=== PATIENT | female | born 1950 | race Caucasian/White ===

== ENCOUNTER → 2019-06-14 | Outpatient (CLI) | payer MEDICARE ==
[~2019-06-14] MED LIST: ALBUIS INH; BUDE6HFA INH; MUPI1NAS; PENVK500 PO; STIOLTO RESPIMAT4 GM
== END | disposition home or self-care (01) ==
LOC: LAB EV 14:02 → LAB SHORT 14:02
DX: N39.0 Urinary tract infection, site not specified (principal)
CPT/HCPCS: 87077; 87086; 87186

== ENCOUNTER 2019-09-24 11:53 | Inpatient (IN) | payer MEDICARE ==
[~2019-09-24] VITALS: Ht 160 cm; Wt 65.7 kg
[~2019-09-24 11:53] MED LIST changes: -ALBUIS INH; +PROAIR DIGIHAL90 MCG INH
[2019-09-24] MEDS ORDERED: BREO ELLIPTA 21 EACH INH (13:06)
[2019-09-24] MEDS ORDERED: TIOT18 INH (13:07)
[2019-09-24 13:33] LABS: BASOPHILS ABSOLUTE AUTO 0.04 K/mm3 (0.00-0.23); BASOPHILS PERCENT AUTO 0 % (0-2); EOSINOPHILS ABSOLUTE AUTO 0.03 K/mm3 (0.00-0.68); EOSINOPHILS PERCENT AUTO 0 % (0-6); Hematocrit 42.5 % (33.0-51.0); Hemoglobin 13.4 g/dL (11.5-16.0); IMMATURE GRAN ABSOLUTE AUTO 0.11 K/mm3 (0.00-0.10); IMMATURE GRAN PERCENT AUTO 1 % (0-1); LYMPHOCYTES ABSOLUTE AUTO 1.03 K/mm3 (0.84-5.20); LYMPHOCYTES PERCENT AUTO 6 % (21-46); MONOCYTES ABSOLUTE AUTO 1.48 K/mm3 (0.16-1.47); MONOCYTES PERCENT AUTO 9 % (4-13); Mean Corpuscular HGB 27.6 pg (26.0-34.0); Mean Corpuscular HGB Conc 31.5 g/dL (31.5-36.5); Mean Corpuscular Volume 88 fL (80-100); Mean Platelet Volume 9.1 fL (9.1-12.4); NEUTROPHILS ABSOLUTE AUTO 14.76 K/mm3 (1.96-9.15); NEUTROPHILS PERCENT AUTO 85 % (41-73); Platelet Count 234 K/mm3 (150-400); RDW Coefficient Variation 12.7 % (11.7-14.2); Red Blood Cell Count 4.85 M/mm3 (3.80-5.20); White Blood Cell Count 17.45 K/mm3 (4.00-11.30)
[2019-09-24 13:53] LABS: Alanine Aminotransfer (ALT/SGP 20 U/L (12-78); Albumin, Blood 3.3 g/dL (3.4-5.0); Albumin/Globulin Ratio 0.8 (0.8-1.8); Alk Phos 95 U/L (50-136); Anion Gap 6 mmol/L (6-16); Aspartate Aminotrans (AST/SGOT 11 U/L (12-37); Bilirubin, Total 0.6 mg/dL (0.1-1.0); Blood Urea Nitrogen 14 mg/dL (8-24); Bun/Creatinine Ratio 16.8 (12.0-20.0); CO2, Blood 26 mmol/L (21-32); Calcium, Blood 8.6 mg/dL (8.5-10.1); Chloride, Blood 101 mmol/L (98-108); Creatinine, Blood 0.83 mg/dL (0.40-1.00); Globulin, Blood 3.9 g/dL (2.2-4.0); Glomerular Filtration Rate >60 (60-); Glucose, Blood 116 mg/dL (70-99); Potassium, Blood 4.4 mmol/L (3.5-5.5); Sodium, Blood 133 mmol/L (136-145); Total Protein, Blood 7.2 g/dL (6.4-8.2)
--- NOTE | 2019-09-24 17:20 | NUR ---
PT AARIVED TO THE MEDICAL FLOOR FROM THE ER A/OX3, PLEASANT AND COOPERATIVE, VIA STRETCHER, ACCOMPANIED BY FAMILY, THE PT WAS ABLE TO STAND AND AMBULATE TO THE BED, THE PT IS ON O2 @ 2L/MIN, PT REPORTS BREATHING EASIER SINCE ADMISSION, PT ORIENTED TO THE ROOM LAYOUT AND CALL SYSTEM, CALL LIGHT IN REACH, WILL CONTINUE TO MONITOR AND ASSESS FOR CHANGES
[2019-09-25 03:49] LABS: Adenovirus Not Detected (NOT DETECT); Bordetella pertussis Not Detected (NOT DETECT); Chlamydophila pneumoniae Not Detected (NOT DETECT); Coronavirus 229E Not Detected (NOT DETECT); Coronavirus HKU1 Not Detected (NOT DETECT); Coronavirus NL63 Not Detected (NOT DETECT); Coronavirus OC43 Not Detected (NOT DETECT); Human Metapneumovirus Not Detected (NOT DETECT); Human Rhinovirus/Enterovirus Not Detected (NOT DETECT); Influenza A Not Detected (NOT DETECT); Influenza A/2009-H1 Not Detected (NOT DETECT); Influenza A/H1 Not Detected (NOT DETECT); Influenza A/H3 Not Detected (NOT DETECT); Influenza B Not Detected (NOT DETECT); Mycoplasma pneumoniae Not Detected (NOT DETECT); Parainfluenza Virus 1 Not Detected (NOT DETECT); Parainfluenza Virus 2 Not Detected (NOT DETECT); Parainfluenza Virus 3 Not Detected (NOT DETECT); Parainfluenza Virus 4 Not Detected (NOT DETECT); Respiratory Syncytial Virus Detected (NOT DETECT)
--- NOTE | 2019-09-25 05:13 | NUR ---
PLATE SHOP HELPER SUMMARY PT AAOX4 AND PLEASANT. ON 2L O2 VIA NC, RA AT BASELINE. LUNGS COARSE AND PT HAS DRY COUGH. RESPIRATORY PANEL SENT OFF AND CAME BACK POSITIVE FOR RSV, PT PLACED IN DROPLET ISOLATION. PT AFEBRILE THROUGH THE NIGHT. STANDBY ASSIST TO BATHROOM. VSS, WILL CONTINUE TO MONITOR.
[2019-09-25 11:04] LABS: BASOPHILS ABSOLUTE AUTO 0.03 K/mm3 (0.00-0.23); BASOPHILS PERCENT AUTO 0 % (0-2); EOSINOPHILS ABSOLUTE AUTO 0.08 K/mm3 (0.00-0.68); EOSINOPHILS PERCENT AUTO 1 % (0-6); Hematocrit 40.2 % (33.0-51.0); Hemoglobin 12.9 g/dL (11.5-16.0); IMMATURE GRAN ABSOLUTE AUTO 0.08 K/mm3 (0.00-0.10); IMMATURE GRAN PERCENT AUTO 1 % (0-1); LYMPHOCYTES ABSOLUTE AUTO 0.93 K/mm3 (0.84-5.20); LYMPHOCYTES PERCENT AUTO 8 % (21-46); MONOCYTES ABSOLUTE AUTO 0.93 K/mm3 (0.16-1.47); MONOCYTES PERCENT AUTO 8 % (4-13); Mean Corpuscular HGB 27.9 pg (26.0-34.0); Mean Corpuscular HGB Conc 32.1 g/dL (31.5-36.5); Mean Corpuscular Volume 87 fL (80-100); Mean Platelet Volume 10.3 fL (9.1-12.4); NEUTROPHILS PERCENT AUTO 83 % (41-73); Platelet Count 144 K/mm3 (150-400); RDW Coefficient Variation 12.9 % (11.7-14.2); Red Blood Cell Count 4.62 M/mm3 (3.80-5.20); White Blood Cell Count 11.85 K/mm3 (4.00-11.30)
[2019-09-25 11:23] LABS: Anion Gap 8 mmol/L (6-16); Blood Urea Nitrogen 10 mg/dL (8-24); Bun/Creatinine Ratio 15.4 (12.0-20.0); CO2, Blood 23 mmol/L (21-32); Calcium, Blood 8.3 mg/dL (8.5-10.1); Chloride, Blood 106 mmol/L (98-108); Creatinine, Blood 0.65 mg/dL (0.40-1.00); Glomerular Filtration Rate >60 (60-); Glucose, Blood 114 mg/dL (70-99); Potassium, Blood 4.3 mmol/L (3.5-5.5); Sodium, Blood 137 mmol/L (136-145)
--- NOTE | 2019-09-25 16:34 | NUR ---
PT IS A/OX3, PLEASANT AND COPERATIVE, THE PT IS UP WITH MINIMAL ASSIST TO THE BATHROOM, THE PT WAS UP INTO THE SHOWER TODAY, PTS O2 TITRATED OFF, THE PT APPEAR TO BE BREATHING EASILY ON RA AT REST, PT DENIED ANY PAIN, PT HAS A LOOSE PRODUCTIVE COUGH, FAMILY WAS IN TO SEE THE PT THIS AM, PT SLEPT FOR MOST OF THE DAY, CALL LIGHT IN REACH, WILL CONTINUE TO MONITOR AND ASSESS FOR CHANGES
--- NOTE | 2019-09-26 04:23 | NUR ---
SHIFT SUMMARY A/O, ABLE TO MAKE NEEDS KNOWN. COOPERATIVE WITH CARE. CALLS AND ANSWERS QUESTIONS APPROPRIATELY. NO C/O PAIN/DISCOMFORT. FEBRILE THIS AM; MEDICATED PER EMAR. UP WITH 1P ASSIST TO BATHROOM R/T IV POLE/TUBING. APPEARED TO REST MUCH OF SHIFT. BED REMAINS IN LOWEST POSITION. CALL LIGHT AND BELONGINGS WITHIN REACH. WCTM. REPORT TO ONCOMING RN.
[2019-09-26 05:49] LABS: BASOPHILS ABSOLUTE AUTO 0.02 K/mm3 (0.00-0.23); BASOPHILS PERCENT AUTO 0 % (0-2); EOSINOPHILS ABSOLUTE AUTO 0.15 K/mm3 (0.00-0.68); EOSINOPHILS PERCENT AUTO 2 % (0-6); Hematocrit 36.9 % (33.0-51.0); Hemoglobin 11.8 g/dL (11.5-16.0); IMMATURE GRAN ABSOLUTE AUTO 0.03 K/mm3 (0.00-0.10); IMMATURE GRAN PERCENT AUTO 0 % (0-1); LYMPHOCYTES ABSOLUTE AUTO 0.88 K/mm3 (0.84-5.20); LYMPHOCYTES PERCENT AUTO 9 % (21-46); MONOCYTES ABSOLUTE AUTO 0.65 K/mm3 (0.16-1.47); MONOCYTES PERCENT AUTO 7 % (4-13); Mean Corpuscular HGB 27.8 pg (26.0-34.0); Mean Corpuscular Volume 87 fL (80-100); Mean Platelet Volume 9.9 fL (9.1-12.4); NEUTROPHILS ABSOLUTE AUTO 8.21 K/mm3 (1.96-9.15); NEUTROPHILS PERCENT AUTO 83 % (41-73); Platelet Count 215 K/mm3 (150-400); RDW Coefficient Variation 12.8 % (11.7-14.2); RDW Standard Deviation 40.9 fL (35.1-46.3); Red Blood Cell Count 4.24 M/mm3 (3.80-5.20); White Blood Cell Count 9.94 K/mm3 (4.00-11.30)
[2019-09-26 06:06] LABS: Anion Gap 8 mmol/L (6-16); Blood Urea Nitrogen 10 mg/dL (8-24); Bun/Creatinine Ratio 13.4 (12.0-20.0); CO2, Blood 24 mmol/L (21-32); Calcium, Blood 8.2 mg/dL (8.5-10.1); Chloride, Blood 104 mmol/L (98-108); Creatinine, Blood 0.75 mg/dL (0.40-1.00); Glomerular Filtration Rate >60 (60-); Glucose, Blood 164 mg/dL (70-99); Potassium, Blood 3.6 mmol/L (3.5-5.5); Sodium, Blood 136 mmol/L (136-145)
--- NOTE | 2019-09-26 13:15 | NUR ---
SHIFT SUMMARY PT IS A/ OX 4 WITH NO C/O PAIN. PT HAS HAD A LOW GRADE TEMP AND HAS BEEN IN THE HIGH 90'S ON 2 LPM VIA N.C. SHE HAS CRACKLES IN HER BASES BUT DENIES ANY SOB AND HAS NO S/S OF RESP DISTRESS. WATER TAXI CAPTAIN REPORTS SINUS AT 92. IV FLUIDS AND ABO HAVE INFUSED WITH NO ISSUES OBSERVED. FAMILY VISITED PT AT BEDSIDE THIS MORNING. ORDERED A HOME O2 EVAL. PLAN IS FOR POSSIBLE DC THIS AMAIRANI IF PT CONTINUES TO IMPROVE PER . PT IS ABLE TO MAKE HER NEEDS KNOWN. SHE CALLS FOR HELP WHEN NEEDED. CALL LIGHT IS IN REACH.
[2019-09-26] MEDS ORDERED: ACET325 PO (15:25)
[2019-09-26] MEDS ORDERED: LEVO750 PO (15:26)
[2019-09-26] MEDS ORDERED: GUAI600T33 PO (15:26)
--- NOTE | 2019-09-26 16:46 | NUR ---
DISCHARGE DISCHARGE INSTRUCTIONS, FOLLOW UP APPOINTMENT AND MEDICATION LIST REVIEWED WITH PT. QUESTIONS/CONCERNS ANSWERED. PT VERBALLY INDICATED UNDERSTANDING OF ALL INSTRUCTIONS RECEIVED. ESCORTED OUT VIA W/C BY LESLY
== END 2019-09-26 16:41 | disposition home or self-care (01) | DRG 871 ==
LOC: ER 11:53 → MEDS 16:04
PROVIDERS: Family Medicine; Hospitalist; Physician Assistant; ADMIT Internal Medicine Endocrinology, Diabetes & Metabolism
DX: A41.9 Sepsis, unspecified organism (principal); J12.1 Respiratory syncytial virus pneumonia; J96.01 Acute respiratory failure with hypoxia; J44.0 Chronic obstructive pulmonary disease with (acute) lower respiratory infection; Z87.891 Personal history of nicotine dependence; Z88.1 Allergy status to other antibiotic agents
CPT/HCPCS: 0099U; 36415; 71046; 80048; 80053; 83605; 84145; 85025; 87040; 87070; 87077; 87081; 87147; 87186; 87205; 87430; 93005; 93010; 94640; 94760; 94761; 96361; 96365; 99285-25; A9270; J0696; J1650; J1956; J7030; J7120

== ENCOUNTER → 2022-03-27 | Outpatient (CLI) | payer MEDICARE ==
[~2022-03-27] MED LIST changes: +ACET325 PO; +BREO ELLIPTA 21 EACH INH; +GUAI600T33 PO; +LEVO750 PO; +TIOT18 INH
[2022-03-27 11:10] LABS: BASOPHILS ABSOLUTE AUTO 0.04 K/mm3 (0.00-0.23); BASOPHILS PERCENT AUTO 1 % (0-2); EOSINOPHILS ABSOLUTE AUTO 0.27 K/mm3 (0.00-0.68); EOSINOPHILS PERCENT AUTO 5 % (0-6); Hematocrit 40.9 % (33.0-51.0); Hemoglobin 13.7 g/dL (11.5-16.0); IMMATURE GRAN ABSOLUTE AUTO 0.02 K/mm3 (0.00-0.10); IMMATURE GRAN PERCENT AUTO 0 % (0-1); LYMPHOCYTES ABSOLUTE AUTO 1.16 K/mm3 (0.84-5.20); LYMPHOCYTES PERCENT AUTO 20 % (21-46); MONOCYTES ABSOLUTE AUTO 0.54 K/mm3 (0.16-1.47); MONOCYTES PERCENT AUTO 9 % (4-13); Mean Corpuscular HGB 28.7 pg (26.0-34.0); Mean Corpuscular HGB Conc 33.5 g/dL (31.5-36.5); Mean Corpuscular Volume 86 fL (80-100); Mean Platelet Volume 8.9 fL (9.1-12.4); NEUTROPHILS ABSOLUTE AUTO 3.72 K/mm3 (1.96-9.15); NEUTROPHILS PERCENT AUTO 65 % (41-73); Platelet Count 281 K/mm3 (150-400); RDW Coefficient Variation 12.8 % (11.7-14.2); RDW Standard Deviation 39.8 fL (35.1-46.3); Red Blood Cell Count 4.77 M/mm3 (3.80-5.20); White Blood Cell Count 5.75 K/mm3 (4.00-11.30)
[2022-03-27 11:20] LABS: Albumin, Blood 3.5 g/dL (3.4-5.0); Bilirubin, Total 0.4 mg/dL (0.1-1.0); Bun/Creatinine Ratio 27.3 (12.0-20.0); Calcium, Blood 9.1 mg/dL (8.5-10.1); Creatinine, Blood 1.39 mg/dL (0.40-1.00); Globulin, Blood 3.6 g/dL (2.2-4.0); Potassium, Blood 4.1 mmol/L (3.5-5.5); Total Protein, Blood 7.1 g/dL (6.4-8.2)
== END | disposition home or self-care (01) ==
LOC: LAB SHORT 11:04 → LAB 11:04
PROVIDERS: Family Medicine
DX: J96.01 Acute respiratory failure with hypoxia (principal)
CPT/HCPCS: 80053; 83880; 85025; 85379

== ENCOUNTER 2022-06-28 22:43 | Emergency (ER) | payer MEDICARE ==
[~2022-06-28] VITALS: Ht 160 cm; Wt 61.2 kg
[2022-06-28 23:30] LABS: BASOPHILS ABSOLUTE AUTO 0.03 K/mm3 (0.00-0.23); BASOPHILS PERCENT AUTO 1 % (0-2); EOSINOPHILS ABSOLUTE AUTO 0.24 K/mm3 (0.00-0.68); EOSINOPHILS PERCENT AUTO 4 % (0-6); Hematocrit 39.8 % (33.0-51.0); IMMATURE GRAN ABSOLUTE AUTO 0.02 K/mm3 (0.00-0.10); IMMATURE GRAN PERCENT AUTO 0 % (0-1); LYMPHOCYTES ABSOLUTE AUTO 0.86 K/mm3 (0.84-5.20); LYMPHOCYTES PERCENT AUTO 16 % (21-46); MONOCYTES ABSOLUTE AUTO 0.77 K/mm3 (0.16-1.47); MONOCYTES PERCENT AUTO 14 % (4-13); Mean Corpuscular HGB 28.8 pg (26.0-34.0); Mean Corpuscular HGB Conc 32.7 g/dL (31.5-36.5); Mean Corpuscular Volume 88 fL (80-100); Mean Platelet Volume 9.1 fL (9.1-12.4); NEUTROPHILS ABSOLUTE AUTO 3.55 K/mm3 (1.96-9.15); NEUTROPHILS PERCENT AUTO 65 % (41-73); Platelet Count 223 K/mm3 (150-400); RDW Coefficient Variation 13.1 % (11.7-14.2); RDW Standard Deviation 42.6 fL (35.1-46.3); Red Blood Cell Count 4.51 M/mm3 (3.80-5.20); White Blood Cell Count 5.47 K/mm3 (4.00-11.30)
[2022-06-28 23:45] LABS: Albumin, Blood 3.3 g/dL (3.4-5.0); Albumin/Globulin Ratio 0.9 (0.8-1.8); Bilirubin, Total 0.4 mg/dL (0.1-1.0); Bun/Creatinine Ratio 26.4 (12.0-20.0); Calcium, Blood 8.9 mg/dL (8.5-10.1); Creatinine, Blood 1.1 mg/dL (0.40-1.00); Globulin, Blood 3.8 g/dL (2.2-4.0); Potassium, Blood 3.8 mmol/L (3.5-5.5); Total Protein, Blood 7.1 g/dL (6.4-8.2)
[2022-06-29 04:11] LABS: Influenza B, PCR NEGATIVE (NEGATIVE); Resp Syncytial Virus, PCR NEGATIVE (NEGATIVE); SARS-Cov-2 (COVID-19) PCR, MMC NEGATIVE (NEGATIVE)
[2022-06-29 04:22] LABS: Influenza A, PCR POSITIVE (NEGATIVE)
[2022-06-29] MEDS ORDERED: PRED20 PO (04:51)
[2022-06-29] MEDS ORDERED: OSEL75CA PO (04:51)
== END 2022-06-29 05:24 | disposition home or self-care (01) ==
LOC: ER 22:43
PROVIDERS: Student in an Organized Health Care Education/Training Program
DX: J10.1 Influenza due to other identified influenza virus with other respiratory manifestations (principal); J44.1 Chronic obstructive pulmonary disease with (acute) exacerbation; Z20.822 Contact with and (suspected) exposure to COVID-19; Z88.1 Allergy status to other antibiotic agents; Z79.899 Other long term (current) drug therapy; Z79.891 Long term (current) use of opiate analgesic
CPT/HCPCS: 0241U; 36415; 71046; 80053; 85025; 93005; 93010; 94640; 94664; A9270; J7512

== ENCOUNTER 2022-12-24 20:20 | Emergency (ER) | payer MEDICARE ==
[~2022-12-24] VITALS: Ht 160 cm; Wt 65.3 kg
[~2022-12-24 20:20] MED LIST changes: +OSEL75CA PO; +PRED20 PO
[2022-12-24 20:29] VITALS: BP 154/86
[2022-12-24 20:51] LABS: BASOPHILS ABSOLUTE AUTO 0.01 K/mm3 (0.00-0.23); BASOPHILS PERCENT AUTO 0 % (0-2); EOSINOPHILS ABSOLUTE AUTO 0.07 K/mm3 (0.00-0.68); EOSINOPHILS PERCENT AUTO 2 % (0-6); Hematocrit 42.8 % (33.0-51.0); Hemoglobin 13.4 g/dL (11.5-16.0); IMMATURE GRAN PERCENT AUTO 0 % (0-1); LYMPHOCYTES ABSOLUTE AUTO 1.42 K/mm3 (0.84-5.20); LYMPHOCYTES PERCENT AUTO 30 % (21-46); MONOCYTES ABSOLUTE AUTO 0.74 K/mm3 (0.16-1.47); MONOCYTES PERCENT AUTO 16 % (4-13); Mean Corpuscular HGB 27.8 pg (26.0-34.0); Mean Corpuscular HGB Conc 31.3 g/dL (31.5-36.5); Mean Corpuscular Volume 89 fL (80-100); NEUTROPHILS ABSOLUTE AUTO 2.44 K/mm3 (1.96-9.15); NEUTROPHILS PERCENT AUTO 52 % (41-73); Platelet Count 195 K/mm3 (150-400); RDW Standard Deviation 42.4 fL (35.1-46.3); Red Blood Cell Count 4.82 M/mm3 (3.80-5.20); White Blood Cell Count 4.68 K/mm3 (4.00-11.30)
[2022-12-24 21:17] LABS: Albumin, Blood 3.3 g/dL (3.4-5.0); Albumin/Globulin Ratio 0.9 (0.8-1.8); Bilirubin, Total 0.3 mg/dL (0.1-1.0); Bun/Creatinine Ratio 24.7 (12.0-20.0); Calcium, Blood 8.6 mg/dL (8.5-10.1); Creatinine, Blood 0.69 mg/dL (0.40-1.00); Globulin, Blood 3.6 g/dL (2.2-4.0); Potassium, Blood 4.3 mmol/L (3.5-5.5); Total Protein, Blood 6.9 g/dL (6.4-8.2)
[2022-12-24] MEDS ORDERED: TEMOVATE15 G1 TP (21:27)
[2022-12-24] MEDS ORDERED: DOXY100 PO (22:26)
[2022-12-24] MEDS ORDERED: PRED20 PO (22:26)
== END 2022-12-24 23:01 | disposition home or self-care (01) ==
LOC: ER 20:20
PROVIDERS: Emergency Medicine
DX: J44.1 Chronic obstructive pulmonary disease with (acute) exacerbation (principal); Z88.1 Allergy status to other antibiotic agents; Z79.899 Other long term (current) drug therapy; Z79.52 Long term (current) use of systemic steroids; Z87.891 Personal history of nicotine dependence
CPT/HCPCS: 71046; 80053; 84484; 85025; 93005; 93010; 94640; 94664; 99284-25; A9270; J7512

== ENCOUNTER 2024-02-03 19:35 | Emergency (ER) | payer OTHER ==
[~2024-02-03] VITALS: Ht 157.5 cm; Wt 63.5 kg
[~2024-02-03 19:35] MED LIST changes: +DOXY100 PO; +TEMOVATE15 G1 TP
[2024-02-03 20:10] LABS: BASOPHILS ABSOLUTE AUTO 0.03 K/mm3 (0.00-0.23); BASOPHILS PERCENT AUTO 0 % (0-2); EOSINOPHILS ABSOLUTE AUTO 0.16 K/mm3 (0.00-0.68); EOSINOPHILS PERCENT AUTO 2 % (0-6); Hematocrit 37.8 % (33.0-51.0); Hemoglobin 12.5 g/dL (11.5-16.0); IMMATURE GRAN ABSOLUTE AUTO 0.02 K/mm3 (0.00-0.10); IMMATURE GRAN PERCENT AUTO 0 % (0-1); LYMPHOCYTES ABSOLUTE AUTO 0.54 K/mm3 (0.84-5.20); LYMPHOCYTES PERCENT AUTO 8 % (21-46); MONOCYTES ABSOLUTE AUTO 0.81 K/mm3 (0.16-1.47); MONOCYTES PERCENT AUTO 11 % (4-13); Mean Corpuscular HGB Conc 33.1 g/dL (31.5-36.5); Mean Corpuscular Volume 88 fL (80-100); NEUTROPHILS ABSOLUTE AUTO 5.54 K/mm3 (1.96-9.15); NEUTROPHILS PERCENT AUTO 78 % (41-73); Platelet Count 223 K/mm3 (150-400); RDW Coefficient Variation 12.4 % (11.7-14.2); Red Blood Cell Count 4.31 M/mm3 (3.80-5.20)
[2024-02-03 20:26] LABS: Albumin, Blood 3.4 g/dL (3.4-5.0); Albumin/Globulin Ratio 0.9 (0.8-1.8); Bilirubin, Total 0.3 mg/dL (0.1-1.0); Bun/Creatinine Ratio 21.4 (12.0-20.0); Creatinine, Blood 0.84 mg/dL (0.40-1.00); Globulin, Blood 3.9 g/dL (2.2-4.0); Potassium, Blood 4.2 mmol/L (3.5-5.5); Total Protein, Blood 7.3 g/dL (6.4-8.2)
[2024-02-03 20:30] VITALS: BP 169/78
[2024-02-03 20:31] LABS: Influenza A, PCR NEGATIVE (NEGATIVE); Influenza B, PCR NEGATIVE (NEGATIVE); Resp Syncytial Virus, PCR NEGATIVE (NEGATIVE)
[2024-02-03 21:05] LABS: SARS-Cov-2 (COVID-19) PCR, MMC POSITIVE (NEGATIVE)
[2024-02-03] MEDS ORDERED: Ketorolac Tromethamine 10 MG Tab PO ONE (21:30)
[2024-02-03] MEDS ORDERED: Acetaminophen 500 MG Tab PO ONE (21:30)
== END 2024-02-03 21:42 | disposition home or self-care (01) ==
LOC: ER 19:35
PROVIDERS: Student in an Organized Health Care Education/Training Program
DX: U07.1 COVID-19 (principal); J44.9 Chronic obstructive pulmonary disease, unspecified; Z99.81 Dependence on supplemental oxygen; M16.12 Unilateral primary osteoarthritis, left hip; Z88.1 Allergy status to other antibiotic agents; Z79.899 Other long term (current) drug therapy; Z79.52 Long term (current) use of systemic steroids; Z87.891 Personal history of nicotine dependence
CPT/HCPCS: 0241U; 71046; 80053; 84484; 85025; 93005; 93010; 99284-25; A9270

== ENCOUNTER → 2024-03-04 | Outpatient (CLI) | payer OTHER ==
[2024-03-04 15:33] LABS: BASOPHILS ABSOLUTE AUTO 0.06 K/mm3 (0.00-0.23); BASOPHILS PERCENT AUTO 1 % (0-2); EOSINOPHILS ABSOLUTE AUTO 0.31 K/mm3 (0.00-0.68); EOSINOPHILS PERCENT AUTO 5 % (0-6); Hematocrit 40.1 % (33.0-51.0); Hemoglobin 12.8 g/dL (11.5-16.0); IMMATURE GRAN ABSOLUTE AUTO 0.02 K/mm3 (0.00-0.10); IMMATURE GRAN PERCENT AUTO 0 % (0-1); LYMPHOCYTES ABSOLUTE AUTO 1.56 K/mm3 (0.84-5.20); LYMPHOCYTES PERCENT AUTO 23 % (21-46); MONOCYTES ABSOLUTE AUTO 0.63 K/mm3 (0.16-1.47); MONOCYTES PERCENT AUTO 9 % (4-13); Mean Corpuscular HGB 28.9 pg (26.0-34.0); Mean Corpuscular HGB Conc 31.9 g/dL (31.5-36.5); Mean Corpuscular Volume 91 fL (80-100); Mean Platelet Volume 9.9 fL (9.1-12.4); NEUTROPHILS ABSOLUTE AUTO 4.32 K/mm3 (1.96-9.15); NEUTROPHILS PERCENT AUTO 63 % (41-73); Platelet Count 261 K/mm3 (150-400); RDW Coefficient Variation 12.7 % (11.7-14.2); RDW Standard Deviation 41.4 fL (35.1-46.3); Red Blood Cell Count 4.43 M/mm3 (3.80-5.20)
[2024-03-04 15:37] LABS: Alanine Aminotransfer (ALT/SGP 22 U/L (12-78); Albumin, Blood 3.5 g/dL (3.4-5.0); Alk Phos 95 U/L (50-136); Anion Gap 5 mmol/L (3-11); Aspartate Aminotrans (AST/SGOT 17 U/L (12-37); Bilirubin, Total 0.4 mg/dL (0.1-1.0); Blood Urea Nitrogen 20 mg/dL (8-24); Bun/Creatinine Ratio 23.5 (12.0-20.0); CHOL/HDL RATIO 2.9; CO2, Blood 32 mmol/L (21-32); Calcium, Blood 9.2 mg/dL (8.5-10.1); Chloride, Blood 106 mmol/L (98-108); Cholesterol 257 mg/dL (50-200); Creatinine, Blood 0.85 mg/dL (0.40-1.00); Globulin, Blood 3.4 g/dL (2.2-4.0); Glomerular Filtration Rate 73 (60-); Glucose, Blood 115 mg/dL (70-99); HDL Cholesterol 90 mg/dL (>39); LDL/HDL RATIO 1.6; Low Density Lipoprotein Chol 148 mg/dL (0-110); Potassium, Blood 4.7 mmol/L (3.5-5.5); Sodium, Blood 138 mmol/L (136-145); Total Protein, Blood 6.9 g/dL (6.4-8.2); Triglycerides 95 mg/dL (30-160); Very Low Density Lipoprot Chol 19 mg/dL (6-32)
== END | disposition home or self-care (01) ==
LOC: LAB SHORT 13:47
PROVIDERS: Internal Medicine
DX: N18.31 Chronic kidney disease, stage 3a (principal); I70.0 Atherosclerosis of aorta; R73.03 Prediabetes; R74.8 Abnormal levels of other serum enzymes
CPT/HCPCS: 80053; 80061; 83036; 85025

== ENCOUNTER 2024-06-25 08:35 | Inpatient (IN) | payer OTHER ==
[~2024-06-25] VITALS: Ht 157.5 cm; Wt 62.0 kg
[~2024-06-25 08:35] MED LIST changes: -PROAIR DIGIHAL90 MCG INH
[2024-06-25 09:42] LABS: BASOPHILS ABSOLUTE AUTO 0.02 K/mm3 (0.00-0.23); BASOPHILS PERCENT AUTO 0 % (0-2); EOSINOPHILS ABSOLUTE AUTO 0.04 K/mm3 (0.00-0.68); EOSINOPHILS PERCENT AUTO 1 % (0-6); Hematocrit 38.4 % (33.0-51.0); Hemoglobin 12.7 g/dL (11.5-16.0); IMMATURE GRAN ABSOLUTE AUTO 0.01 K/mm3 (0.00-0.10); IMMATURE GRAN PERCENT AUTO 0 % (0-1); LYMPHOCYTES ABSOLUTE AUTO 1.01 K/mm3 (0.84-5.20); LYMPHOCYTES PERCENT AUTO 15 % (21-46); MONOCYTES ABSOLUTE AUTO 0.71 K/mm3 (0.16-1.47); MONOCYTES PERCENT AUTO 10 % (4-13); Mean Corpuscular HGB 28.5 pg (26.0-34.0); Mean Corpuscular HGB Conc 33.1 g/dL (31.5-36.5); Mean Corpuscular Volume 86 fL (80-100); Mean Platelet Volume 9.1 fL (9.1-12.4); NEUTROPHILS ABSOLUTE AUTO 5.07 K/mm3 (1.96-9.15); NEUTROPHILS PERCENT AUTO 74 % (41-73); Platelet Count 225 K/mm3 (150-400); RDW Standard Deviation 38.4 fL (35.1-46.3); Red Blood Cell Count 4.46 M/mm3 (3.80-5.20); White Blood Cell Count 6.86 K/mm3 (4.00-11.30)
[2024-06-25 10:10] LABS: Albumin, Blood 3.4 g/dL (3.4-5.0); Albumin/Globulin Ratio 0.9 (0.8-1.8); Bilirubin, Total 0.4 mg/dL (0.1-1.0); Bun/Creatinine Ratio 28.1 (12.0-20.0); Calcium, Blood 9.2 mg/dL (8.5-10.1); Creatinine, Blood 0.82 mg/dL (0.40-1.00); Globulin, Blood 3.7 g/dL (2.2-4.0); Magnesium, Blood 1.4 mg/dL (1.6-2.4); Phosphorus, Blood 2.2 mg/dL (2.5-4.9); Potassium, Blood 4.4 mmol/L (3.5-5.5); Total Protein, Blood 7.1 g/dL (6.4-8.2)
[2024-06-25] MEDS ORDERED: Acetaminophen 500 MG Tab PO ONE (10:40)
[2024-06-25 10:56] LABS: Influenza A, PCR NEGATIVE (NEGATIVE); Influenza B, PCR NEGATIVE (NEGATIVE); Resp Syncytial Virus, PCR NEGATIVE (NEGATIVE); SARS-Cov-2 (COVID-19) PCR, MMC NEGATIVE (NEGATIVE)
[2024-06-25] MEDS ORDERED: Mag Sulfate 1 GM/D5% 100ML 100 ML IV STA (11:52)
[2024-06-25] MEDS ORDERED: SODIUM PHOSPHATE IV SCH (12:00)
[2024-06-25] MEDS ORDERED: NS IV SCH (12:00)
[2024-06-25 12:23] LABS: Base Excess Venous 1.3 mmol/L; Bicarbonate Venous 25.7 mmol/L (24.0-30.0); PCO2 Venous 34.9 mmHg (38-42); pH Blood Venous 7.46 (7.34-7.37)
[2024-06-25] MEDS ORDERED: CefTRIAXone Sodium 1,000 MG in NS 100 ML IV ONE (12:25)
[2024-06-25] MEDS ORDERED: Doxycycline Hyclate 100 MG in Dextrose 5% 250 ML IV ONE (12:25)
[2024-06-25] MEDS ORDERED: BREZTRI AEROS10.7 GM INH (13:35)
[2024-06-25] MEDS ORDERED: FLU VACC TS2024-25(6MOS UP)/PF 45 MCG/0.5 ML SYRINGE IM SCH (14:20)
[2024-06-25] MEDS ORDERED: Albuterol 2.5 MG/3 ML VIAL INH PRN (14:30)
[2024-06-25] MEDS ORDERED: Ipratropium/Albuterol SulF 2.5-0.5MG/3 ML Amp INH SCH (14:30)
[2024-06-25] MEDS ORDERED: Vancomycin HCL 1,500 MG in NS 250 ML IV ONE (14:45)
[2024-06-25] MEDS ORDERED: PredniSONE 20 MG Tab PO SCH (15:00)
[2024-06-25 16:46] LABS: Adenovirus Not Detected (NOT DETECT); Bordetella pertussis Not Detected (NOT DETECT); Chlamydophila pneumoniae Not Detected (NOT DETECT); Coronavirus 229E Not Detected (NOT DETECT); Coronavirus HKU1 Not Detected (NOT DETECT); Coronavirus NL63 Not Detected (NOT DETECT); Coronavirus OC43 Not Detected (NOT DETECT); Human Metapneumovirus Not Detected (NOT DETECT); Human Rhinovirus/Enterovirus Detected (NOT DETECT); Influenza A/2009-H1 Not Detected (NOT DETECT); Influenza A/H1 Not Detected (NOT DETECT); Influenza A/H3 Not Detected (NOT DETECT); Influenza B Not Detected (NOT DETECT); Mycoplasma pneumoniae Not Detected (NOT DETECT); Parainfluenza Virus 1 Not Detected (NOT DETECT); Parainfluenza Virus 2 Not Detected (NOT DETECT); Parainfluenza Virus 3 Not Detected (NOT DETECT); Parainfluenza Virus 4 Not Detected (NOT DETECT); Respiratory Syncytial Virus Not Detected (NOT DETECT); SARS-Cov-2 (COVID-19), BioFire Not Detected (NOT DETECT)
[2024-06-25 17:02] VITALS: BP 103/71
[2024-06-25 17:38] LABS: BASOPHILS ABSOLUTE AUTO 0.03 K/mm3 (0.00-0.23); BASOPHILS PERCENT AUTO 0 % (0-2); EOSINOPHILS ABSOLUTE AUTO 0.03 K/mm3 (0.00-0.68); EOSINOPHILS PERCENT AUTO 0 % (0-6); Hematocrit 34.1 % (33.0-51.0); Hemoglobin 11.1 g/dL (11.5-16.0); IMMATURE GRAN ABSOLUTE AUTO 0.03 K/mm3 (0.00-0.10); IMMATURE GRAN PERCENT AUTO 0 % (0-1); LYMPHOCYTES ABSOLUTE AUTO 1.47 K/mm3 (0.84-5.20); LYMPHOCYTES PERCENT AUTO 16 % (21-46); MONOCYTES ABSOLUTE AUTO 0.84 K/mm3 (0.16-1.47); MONOCYTES PERCENT AUTO 9 % (4-13); Mean Corpuscular HGB 28.4 pg (26.0-34.0); Mean Corpuscular HGB Conc 32.6 g/dL (31.5-36.5); Mean Corpuscular Volume 87 fL (80-100); Mean Platelet Volume 9.4 fL (9.1-12.4); NEUTROPHILS ABSOLUTE AUTO 7.01 K/mm3 (1.96-9.15); NEUTROPHILS PERCENT AUTO 75 % (41-73); Platelet Count 210 K/mm3 (150-400); RDW Coefficient Variation 12.4 % (11.7-14.2); RDW Standard Deviation 39.7 fL (35.1-46.3); Red Blood Cell Count 3.91 M/mm3 (3.80-5.20); White Blood Cell Count 9.41 K/mm3 (4.00-11.30)
[2024-06-25] MEDS ORDERED: Acetaminophen 325 MG TABLET PO PRN (18:35)
--- NOTE | 2024-06-25 19:39 | NUR ---
pt arrived a/o x4 and on 6 l nc no distress. family at bedside and pt has no complaints, admission hx done, pt ambulatory in room, is now eating dinner and has call light within reach
[2024-06-25] MEDS ORDERED: NS 250 ML IV PRN (19:40)
[2024-06-25] MEDS ORDERED: Lactobacil 2-S.Thermo-Bifido 1 1 Cap PO SCH (21:00)
[2024-06-25] MEDS ORDERED: Doxycycline Hyclate 100 MG in Dextrose 5% 250 ML IV SCH (21:00)
[2024-06-25 21:36] VITALS: BP 117/70
[2024-06-26] MEDS ORDERED: Vancomycin HCL 500 MG in NS 250 ML IV SCH (04:00)
[2024-06-26 05:07] VITALS: BP 105/57
--- NOTE | 2024-06-26 05:20 | NUR ---
SHIFT SUMMARY NOC PT A/O X 4. PLEASANT AND COOPERATIVE WITH CARE. VSS. ON DROPLET ISOLATION FRO RHINOVIRUS. ON BASELINE O2 6L/NC SPO2 >92%. PT MEDICATED AT SHIFT CHANGE FOR LUQ PAIN FROM LLL PNA. PT ON AGGRESSIVE IV ABX REGIMEN. PT HAS NARES MRSA, UA, AND SPUTUM SAMPLES PENDING. PT HAS LARGE HEALING SCAB ON R OUTER CRUZ FROM RECENT FALL THIS PAST SATURDAY THAT OPENED XEROFORM, MEPILEX IN PLACE C/D/I. WHICH ALSO IS RED FROM THE KNEE TO LOWER CRUZ (PHOTOS IN CHART). PT CURRENTLY RESTING WITH BED IN LOWEST POSITION, AND CALL LIGHT WITHIN REACH.
[2024-06-26 05:52] LABS: Source, Urine Clean Catch
[2024-06-26 05:54] LABS: Bilirubin, Urine Neg (Neg); Blood, Urine 1+ (Neg); Glucose Qualitative, Urine Neg (Neg); Ketones, Urine Neg (Neg); Leukocyte Esterase, Urine 1+ (Neg); Nitrite, Urine Neg (Neg); Protein, Urine Neg (Neg); Specific Gravity, Urine 1.015 (1.003-1.022); Urobilinogen, Urine NORM (Normal)
[2024-06-26 06:42] LABS: Appearance, Urine Clear (Clear); Color, Urine Yellow (P-Yellow)
[2024-06-26 06:43] LABS: Bacteria Mod /hpf; Red Blood Cells, Urine 0-2 /hpf (0-2); Squamous Epithelial Cells Mod /hpf (Few)
[2024-06-26 07:40] VITALS: BP 114/68
[2024-06-26] MEDS ORDERED: Enoxaparin 40 MG/0.4 ML SYR SC SCH (09:00)
[2024-06-26] MEDS ORDERED: Misc. Inhaler INH SCH (10:15)
[2024-06-26] MEDS ORDERED: CefTRIAXone Sodium 1,000 MG in NS 100 ML IV SCH (12:00)
[2024-06-26 13:41] LABS: Acinetobacter baumannii DNA Not Detected copy/mL (NOT DETECT); Enterobacter cloacae DNA Not Detected copy/mL (NOT DETECT); Escherichia coli DNA Not Detected copy/mL (NOT DETECT); Haemophilus influenzae DNA Not Detected copy/mL (NOT DETECT); Klebsiella aerogenes DNA Not Detected copy/mL (NOT DETECT); Klebsiella oxytoca DNA Not Detected copy/mL (NOT DETECT); Klebsiella pneumoniae DNA Not Detected copy/mL (NOT DETECT); Moraxella catarrhalis DNA Not Detected copy/mL (NOT DETECT); Proteus sp DNA Not Detected copy/mL (NOT DETECT); Pseudomonas aeruginosa DNA Not Detected copy/mL (NOT DETECT); Serratia marcescens DNA Not Detected copy/mL (NOT DETECT); Staphylococcus aureus DNA Detected Bin 10^4 copy/mL (NOT DETECT); Streptococcus agalactiae DNA Not Detected copy/mL (NOT DETECT); Streptococcus pneumoniae DNA Not Detected copy/mL (NOT DETECT); Streptococcus pyogenes DNA Not Detected copy/mL (NOT DETECT)
[2024-06-26 13:42] LABS: Adenovirus DNA Not Detected (NOT DETECT); Chlamydia pneumonia Not Detected (NOT DETECT); Human Coronavirus RNA Detected (NOT DETECT); Human Metapneumovirus RNA Not Detected (NOT DETECT); Influenza virus A RNA Not Detected (NOT DETECT); Influenza virus B RNA Not Detected (NOT DETECT); Legionella pneumophila Not Detected (NOT DETECT); Mycoplasma pneumoniae Not Detected (NOT DETECT); Parainfluenza virus RNA Not Detected (NOT DETECT); Respiratory syncytial Vir RNA Not Detected (NOT DETECT); Rhinovirus+Enterovirus RNA Detected (NOT DETECT); mecA/C and MREJ Resist Gene Not Detected
[2024-06-26] MEDS ORDERED: ALBU90OI INH (15:32)
[2024-06-26 16:18] VITALS: BP 118/72
--- NOTE | 2024-06-26 18:00 | NUR ---
SHIFT NOTE: PT A/OX4 AND ABLE TO MAKE HER NEEDS KNOWN. SHE IS ON 6L NC TO MAINTAIN SPO2>90. HER BASELINE HOME USE IS 6-8L NC. SHE HAS COMPLAINED OF SOME LEFT SIDED PLEURIC PAIN. SHE IS CONT AND IND IN ROOM FOR ADLS. HER RIGHT CRUZ WOUND IS DRESSED C/D/I. PLAN IS TO CONTINUE IV ABX COURSE.
[2024-06-26 19:47] VITALS: BP 125/65
[2024-06-27 03:00] LABS: BASOPHILS ABSOLUTE AUTO 0.01 K/mm3 (0.00-0.23); BASOPHILS PERCENT AUTO 0 % (0-2); EOSINOPHILS PERCENT AUTO 0 % (0-6); Hematocrit 33.6 % (33.0-51.0); Hemoglobin 11.1 g/dL (11.5-16.0); IMMATURE GRAN ABSOLUTE AUTO 0.03 K/mm3 (0.00-0.10); IMMATURE GRAN PERCENT AUTO 0 % (0-1); LYMPHOCYTES ABSOLUTE AUTO 0.99 K/mm3 (0.84-5.20); LYMPHOCYTES PERCENT AUTO 11 % (21-46); MONOCYTES PERCENT AUTO 7 % (4-13); Mean Corpuscular HGB 28.7 pg (26.0-34.0); Mean Corpuscular Volume 87 fL (80-100); Mean Platelet Volume 8.9 fL (9.1-12.4); NEUTROPHILS ABSOLUTE AUTO 7.47 K/mm3 (1.96-9.15); NEUTROPHILS PERCENT AUTO 82 % (41-73); Platelet Count 222 K/mm3 (150-400); RDW Coefficient Variation 12.5 % (11.7-14.2); RDW Standard Deviation 39.8 fL (35.1-46.3); Red Blood Cell Count 3.87 M/mm3 (3.80-5.20)
[2024-06-27 03:06] VITALS: BP 119/72
[2024-06-27 03:20] LABS: Albumin, Blood 2.6 g/dL (3.4-5.0); Anion Gap 10 mmol/L (3-11); Blood Urea Nitrogen 15 mg/dL (8-24); Bun/Creatinine Ratio 19.7 (12.0-20.0); CO2, Blood 26 mmol/L (21-32); Calcium, Blood 9.1 mg/dL (8.5-10.1); Chloride, Blood 109 mmol/L (98-108); Creatinine, Blood 0.76 mg/dL (0.40-1.00); Glomerular Filtration Rate 84 (60-); Glucose, Blood 150 mg/dL (70-99); Magnesium, Blood 1.8 mg/dL (1.6-2.4); Phosphorus, Blood 2.1 mg/dL (2.5-4.9); Potassium, Blood 4.3 mmol/L (3.5-5.5); Sodium, Blood 141 mmol/L (136-145); Vancomycin, Trough 9.5 ug/mL (5.0-10.0)
[2024-06-27] MEDS ORDERED: Vancomycin HCL 750 MG in NS 250 ML IV SCH (04:18)
--- NOTE | 2024-06-27 04:37 | NUR ---
SHIFT SUMMARY NOC PT A/O X 4. PLEASANT AND COOPERATIVE WITH CARE. VSS. NO ACUTE EVENTS TO REPORT. PT REMAINS ON O2 6L/NC WHICH IS BASELINE SPO2 >92%. PT REPORTS DECREASED PAIN IN LUCW FROM PNA AND DECLINED PAIN RX. PT ON DROPLET ISOLATION FOR RHINOVIRUS. OPEN SCAB ON RLE HAS XEROFORM AND MEPILEX IN PLACE C/D/I. PT CONTIUES IV ABX THERAPY FOR LLL PNA. PT CURRENTLY RESTING WITH BED IN LOWEST POSITION, AND CALL LIGHT WITHIN REACH.
[2024-06-27 08:05] VITALS: BP 123/68
[2024-06-27 15:18] VITALS: BP 138/81
--- NOTE | 2024-06-27 19:00 | NUR ---
RECEIVED BEDSIDE REPORT. PT IN BED VISITING WITH A FRIEND. A/O. NO NEEDS AT THIS TIME. WILL CONTINUE TO PROVIDE CARE T/O SHIFT. CALL LT IN REACH.
--- NOTE | 2024-06-27 19:21 | NUR ---
report received and verified, pt laying quietly in bed no s/s of distress, pt cont on her norm 6 liter via nc and hayden well, hasnt had any c/o pain for me. right leg wound c/d/i. pt call light within reach
[2024-06-27 20:24] VITALS: BP 145/82
--- NOTE | 2024-06-27 22:16 | NUR ---
PT RESTING QUIETLY, LYING ON LEFT SIDE. CALL LT IN REACH.
--- NOTE | 2024-06-28 01:39 | NUR ---
PT RESTING QUIETLY. CALL LT IN REACH.
[2024-06-28 03:45] VITALS: BP 128/75
[2024-06-28 04:29] LABS: Vancomycin, Trough 13.6 ug/mL (5.0-10.0)
--- NOTE | 2024-06-28 05:49 | NUR ---
WARM BLANKET GIVEN TO PT, ABX HUNG AN INFUSING. NO OTHER NEES. CALL LT IN REACH.
[2024-06-28 07:41] VITALS: BP 144/84
[2024-06-28] MEDS ORDERED: DEXTROMETHORPHAN/BENZOCAINE 1 EACH LOZENGE MT PRN (09:45)
[2024-06-28] MEDS ORDERED: Doxycycline Hyclate 100 MG TAB PO SCH (10:00)
[2024-06-28] MEDS ORDERED: Nystatin 100,000 Unit/ML Susp 5 ML UDC MT SCH (10:00)
[2024-06-28 15:42] VITALS: BP 150/90
[2024-06-28 19:19] VITALS: BP 181/99
--- NOTE | 2024-06-28 19:33 | NUR ---
report received, pt trying to sleep in this morning and doesnt want to be disturbed. once awake pt very pleasent with no significant change, md would like to keep for additional day and change medication. pt cont on 6 liter nc, ind in room and is amb without any distress. new iv placed to left forearm
--- NOTE | 2024-06-28 19:36 | NUR ---
dressing changed right morales dressing changed to a more breathable dressing. carlito/ alg with none stick dressing placed
[2024-06-29 04:26] VITALS: BP 155/83
[2024-06-29 04:58] LABS: BASOPHILS ABSOLUTE AUTO 0.02 K/mm3 (0.00-0.23); BASOPHILS PERCENT AUTO 0 % (0-2); EOSINOPHILS ABSOLUTE AUTO 0.03 K/mm3 (0.00-0.68); EOSINOPHILS PERCENT AUTO 0 % (0-6); Hemoglobin 11.5 g/dL (11.5-16.0); IMMATURE GRAN ABSOLUTE AUTO 0.11 K/mm3 (0.00-0.10); IMMATURE GRAN PERCENT AUTO 1 % (0-1); LYMPHOCYTES ABSOLUTE AUTO 1.46 K/mm3 (0.84-5.20); LYMPHOCYTES PERCENT AUTO 18 % (21-46); MONOCYTES ABSOLUTE AUTO 0.75 K/mm3 (0.16-1.47); MONOCYTES PERCENT AUTO 9 % (4-13); Mean Corpuscular HGB 28.3 pg (26.0-34.0); Mean Corpuscular HGB Conc 31.9 g/dL (31.5-36.5); Mean Corpuscular Volume 89 fL (80-100); Mean Platelet Volume 9.2 fL (9.1-12.4); NEUTROPHILS ABSOLUTE AUTO 5.57 K/mm3 (1.96-9.15); NEUTROPHILS PERCENT AUTO 70 % (41-73); Platelet Count 279 K/mm3 (150-400); RDW Coefficient Variation 12.5 % (11.7-14.2); Red Blood Cell Count 4.07 M/mm3 (3.80-5.20); White Blood Cell Count 7.94 K/mm3 (4.00-11.30)
[2024-06-29 05:22] LABS: Bun/Creatinine Ratio 29.9 (12.0-20.0); Calcium, Blood 9.6 mg/dL (8.5-10.1); Creatinine, Blood 0.7 mg/dL (0.40-1.00); Potassium, Blood 4.9 mmol/L (3.5-5.5)
--- NOTE | 2024-06-29 06:17 | NUR ---
SHIFT SUMMARY AT START OF SHIFT, PT HAD A VISITOR, WHO LEFT RIGHT AFTER SHIFT CHANGE. PT IN HER BED WATCHING A SHOW ON HER PHONE. PT HAS BEEN PLEASANT AND COOPERATIVE WITH HER CARE. AFTER EVENING MED PASS, PT WENT TO SLEEP FOR THE NIGHT.
[2024-06-29 07:55] VITALS: BP 155/94
[2024-06-29 07:58] VITALS: BP 138/84
[2024-06-29] MEDS ORDERED: Acetaminophen325 M1 PO (09:47)
[2024-06-29] MEDS ORDERED: CEPACOL THROAT1 EAC1 MM (09:49)
[2024-06-29] MEDS ORDERED: DOXY100 PO (09:49)
[2024-06-29] MEDS ORDERED: NYSTATIN100000 U10 MT (09:49)
[2024-06-29] MEDS ORDERED: VISBIOME 112.51 EACH PO (09:50)
[2024-06-29] MEDS ORDERED: PRED20 PO (09:50)
[2024-06-29] MEDS ORDERED: SPIRIVA RESPIMAT4 G3 INH (09:51)
--- NOTE | 2024-06-29 11:46 | NUR ---
REPORT RECEIVED PT DOING MUCH BETTER TODAY MD HAS GIVEN DISCHARGE ORDERS. INSTRUCTIONS GIVEN AND EXPLAINED TO DAUGTHER AND PT, BOTH VERBALIZED UNDERSTANDING. IV DCED PT TAKEN DOWNSTAIRS VIA WHEELCHAIR.
== END 2024-06-29 11:31 | disposition home or self-care (01) | DRG 871 ==
LOC: ER 08:35 → MEDS 14:19
PROVIDERS: Emergency Medicine; Internal Medicine; ADMIT Family Medicine
DX: A41.9 Sepsis, unspecified organism (principal); J12.89 Other viral pneumonia; J96.21 Acute and chronic respiratory failure with hypoxia; L03.115 Cellulitis of right lower limb; J44.1 Chronic obstructive pulmonary disease with (acute) exacerbation; J44.0 Chronic obstructive pulmonary disease with (acute) lower respiratory infection; B97.89 Other viral agents as the cause of diseases classified elsewhere; R65.20 Severe sepsis without septic shock; F10.10 Alcohol abuse, uncomplicated; E83.42 Hypomagnesemia; E83.39 Other disorders of phosphorus metabolism; R07.81 Pleurodynia; S01.80XA Unspecified open wound of other part of head, initial encounter; R91.1 Solitary pulmonary nodule; R73.03 Prediabetes; J43.9 Emphysema, unspecified; Z79.899 Other long term (current) drug therapy; Z88.1 Allergy status to other antibiotic agents; Z79.2 Long term (current) use of antibiotics; Z79.52 Long term (current) use of systemic steroids; Z90.49 Acquired absence of other specified parts of digestive tract; Z90.89 Acquired absence of other organs; Z98.51 Tubal ligation status; Z87.891 Personal history of nicotine dependence; W01.198A Fall on same level from slipping, tripping and stumbling with subsequent striking against other object, initial encounter; Z86.14 Personal history of Methicillin resistant Staphylococcus aureus infection; Z98.890 Other specified postprocedural states
CPT/HCPCS: 0202U; 0241U; 36415; 71045; 71260; 73590; 80048; 80053; 80069; 80202; 81001; 82803; 83605; 83735; 84100; 84145; 84484; 85025; 85379; 87040; 87070; 87086; 87205; 87633; 93005; 93010; 94640; 94664; 94760; 96365-59; 96366; 96368; 96375; 99285-25; A9270; J0696; J1650; J3370; J3475; J7050; J7060; J7512; Q9967